=== PATIENT | female | born 1965 ===

== ENCOUNTER 2025-01-10 09:45 | Inpatient (IN) | payer OTHER ==
[~2025-01-10] VITALS: Ht 61 cm; Wt 50.8 kg
[2025-01-10 13:04] VITALS: BP 124/69
[2025-01-10] MEDS ORDERED: LEVOTHYROXINE25 MCG PO (13:08)
[2025-01-10] MEDS ORDERED: AZOR 5-20 MG T1 EACH PO (13:08)
[2025-01-10] MEDS ORDERED: TRAMADOL HCL E100 M1 (13:08)
[2025-01-10] MEDS ORDERED: ABATINEX680 MG PO (13:08)
[2025-01-10] MEDS ORDERED: CLONAZEPAM0.5 MG PO (13:09)
[2025-01-10] MEDS ORDERED: PROLIA60 MG/1 ML (13:09)
[2025-01-10] MEDS ORDERED: TRAZODONE HCL50 MG PO (13:10)
[2025-01-10 16:43] LABS: INR 1.1
[2025-01-16] MEDS ORDERED: ONDANSETRON HCL 2 MG/ML VIAL IV PRN (13:15)
[2025-01-16] MEDS ORDERED: RINGERS SOLUTION,LACTATED 1,000 ML IV SCH (13:15)
[2025-01-16] MEDS ORDERED: MORPHINE SULFATE 4 MG/ML CARTRIDGE IV PRN (13:15)
[2025-01-16] MEDS ORDERED: OxyCODONE HCL 5 MG TABLET (ROXICODONE) PO PRN (13:15)
[2025-01-16] MEDS ORDERED: BUPIVACAINE HCL/PF 0.25% 30ML VIAL InF ONE (13:45)
[2025-01-16] MEDS ORDERED: POVIDONE-IODINE 118 ML BOTT TOP ONE (13:45)
[2025-01-16] MEDS ORDERED: levoFLOXacin IN DEXTROSE 5 % 5 MG/ML PIGGYBAG IV SCH (13:45)
[2025-01-16] MEDS ORDERED: METRONIDAZOLE/SODIUM CHLORIDE 500 MG/100 ML PIGGYBACK IV SCH (13:45)
[2025-01-16] MEDS ORDERED: LIDOCAINE HCL 1%/EPINEPHRINE 20ML VIAL IJ ONE (13:45)
[2025-01-16] MEDS ORDERED: ACETAMINOPHEN 500 MG GEL..CAP PO SCH (14:00)
[2025-01-16 16:36] LABS: BASO % 0.2 % (0.1-1.2); EOS # 0.04 (0.04-0.54); EOS % 0.3 % (0.7-7.0); LYMPH # 0.93 (1.18-3.74); LYMPH % 7.5 % (19.3-53.1); MEAN PLATELET VOLUME 9.60 fl (9.4-12.4); MONO # 0.48 (0.24-0.82); MONO % 3.9 % (4.7-12.5); NEUT # 10.86 (1.56-6.13); NEUT % 87.9 % (34.0-71.1); RED CELL DISTRIBUTION WIDTH 13.5 % (11.6-14.4)
[2025-01-16] MEDS ORDERED: KETOROLAC TROMETHAMINE 30 MG VIAL IV SCH (17:00)
[2025-01-16] MEDS ORDERED: GABAPENTIN 300 MG CAPSULE PO SCH (17:00)
[2025-01-16] MEDS ORDERED: ENALAPRILAT DIHYDRATE 1.25 MG/ML VIAL IV PRN (17:30)
[2025-01-16] MEDS ORDERED: MORPHINE SULFATE 4 MG/ML VIAL IV ONE (19:35)
[2025-01-16] MEDS ORDERED: FAMOTIDINE/PF 20 MG/2 ML VIAL IV PUSH SCH (21:00)
[2025-01-17 00:32] VITALS: BP 95/68; O2SAT 98
[2025-01-17] MEDS ORDERED: LEVOTHYROXINE SODIUM 25 MCG TABLET PO SCH (06:00)
[2025-01-17] MEDS ORDERED: LEVOTHYROXINE PO SCH (06:00)
[2025-01-17 07:09] LABS: BUN CREA RATIO 9.0 (7.0-25.0); CREATININE SERUM 0.55 mg/dL (0.55-1.02); GFR 112.74; GLUCOSE FASTING 82.0 mg/dL (65-100); OSMOLALITY SERUM 281.0 MOSM/KG (275-295)
[2025-01-17 07:41] LABS: BASO % 0.2 % (0.1-1.2); EOS # 0.02 (0.04-0.54); EOS % 0.2 % (0.7-7.0); LYMPH # 1.58 (1.18-3.74); LYMPH % 16.2 % (19.3-53.1); MEAN PLATELET VOLUME 10.10 fl (9.4-12.4); MONO # 0.61 (0.24-0.82); MONO % 6.2 % (4.7-12.5); NEUT # 7.52 (1.56-6.13); NEUT % 77.0 % (34.0-71.1); RED CELL DISTRIBUTION WIDTH 13.4 % (11.6-14.4)
[2025-01-17 08:44] VITALS: BP 130/74; O2SAT 100
[2025-01-17] MEDS ORDERED: PATIENTS OWN MEDICATION (MEDICAMENTO EN PISO) PO SCH (09:00)
[2025-01-17] MEDS ORDERED: LACTOBACILLUS ACIDOPHILUS 1 CAP CAP PO SCH (09:00)
[2025-01-17] MEDS ORDERED: FLUOXETINE HCL 10 MG CAPSULE PO SCH (09:00)
[2025-01-17] MEDS ORDERED: MAGNESIUM SULFATE IN WATER 50 ML IV NR (09:15)
[2025-01-17] MEDS ORDERED: ENOXAPARIN SODIUM 40 MG/0.4 ML SYRINGE SUBCUTANEO SCH (17:00)
[2025-01-17 17:01] VITALS: BP 131/71; O2SAT 99
[2025-01-18 01:13] VITALS: BP 108/69; O2SAT 97
[2025-01-18] MEDS ORDERED: PATIENTS OWN MEDICATION (MEDICAMENTO EN PISO) PO SCH (06:00)
[2025-01-18 07:08] LABS: BASO % 0.2 % (0.1-1.2); EOS # 0.04 (0.04-0.54); EOS % 0.4 % (0.7-7.0); LYMPH # 1.28 (1.18-3.74); LYMPH % 13.6 % (19.3-53.1); MEAN PLATELET VOLUME 9.80 fl (9.4-12.4); MONO # 0.53 (0.24-0.82); MONO % 5.7 % (4.7-12.5); NEUT # 7.49 (1.56-6.13); NEUT % 79.9 % (34.0-71.1); RED CELL DISTRIBUTION WIDTH 13.5 % (11.6-14.4)
[2025-01-18 07:38] LABS: BUN CREA RATIO 7.0 (7.0-25.0); CREATININE SERUM 0.6 mg/dL (0.55-1.02); GFR 101.97; GLUCOSE FASTING 73.0 mg/dL (65-100); OSMOLALITY SERUM 277.0 MOSM/KG (275-295)
[2025-01-18 08:00] VITALS: BP 126/74; O2SAT 98
[2025-01-18] MEDS ORDERED: ENOXAPARIN SODIUM 40 MG/0.4 ML SYRINGE SUBCUTANEO SCH (09:00)
[2025-01-18] MEDS ORDERED: POTASSIUM CHLORIDE 20MEQ/100ML H2O PB IV NR (10:30)
[2025-01-18] MEDS ORDERED: CELECOXIB200 MG PO (16:13)
[2025-01-18] MEDS ORDERED: CIPRO500 MG PO (16:13)
[2025-01-18] MEDS ORDERED: INTESTINEX680 M1 PO (16:13)
[2025-01-18] MEDS ORDERED: HIBICLENS118 ML TOP (16:14)
[2025-01-18 17:24] VITALS: BP 125/86; O2SAT 95
== END 2025-01-18 18:28 | disposition home or self-care (01) | DRG 830 ==
LOC: SURH 01-16 07:00 → O/R 01-16 07:00 → SURH 01-16 09:45 → OB/GYN 01-16 18:19 → SURH 01-16 18:33
PROVIDERS: Internal Medicine Geriatric Medicine; ADMIT Surgery; ATTEND Surgery
PROC: 0DBP0ZX Excision of Rectum, Open Approach, Diagnostic (ICD-10-PCS; 2025-01-16)
PROC: 0QBS0ZZ Excision of Coccyx, Open Approach (ICD-10-PCS; principal; 2025-01-16 07:00)
DX: C48.0 Malignant neoplasm of retroperitoneum (principal); D16.6 Benign neoplasm of vertebral column